=== PATIENT | female | born 1945 | race Caucasian/White ===

== ENCOUNTER 2023-06-28 13:38 | Emergency (ER) | payer MEDICARE, SELFPAY ==
[2023-06-28 14:09] VITALS: BP 149/80
--- NOTE | 2023-06-28 15:01 | ED.GENMED ---
History of Present Illness
General
Chief Complaint: Musculo-Skeletal Complaint
Source: patient
Exam Limitations: none
Time Seen by Provider: 06/28/23 14:54
Travel History
Have you had any contact with someone who has COVID-19?: No
Do you have any symptoms of coronavirus? Fever > 100 degrees, chills, cough, shortness of breath, sore throat, loss of taste or smell, muscle aches, or headache?: No
History of Present Illness
History of Present Illness:
See MDM
Past History
Past History
ED Past Medical History: Other (DVT)
ED Past Surgical History: Gynecological and Other
Social History
Tobacco: Former smoker
Alcohol: Occasional
Personal:
Living: alone
Phy Exam
Physical Exam
Physical Exam:
See MDM
Course
Orders/Labs/Results
Orders:
Orders
06/28/23 14:12
Knee, Left 4 or More Views [CR Knee - Left 4 Or More View*] Urgent
Comment:
Reason For Exam: pain after a fall
Vital Signs
Initial and Last Documented VS:
Initial Vital Signs
Temp Pulse Resp BP Pulse Ox
98.7 F 75 20 149/80 99
06/28/23 14:09 06/28/23 14:09 06/28/23 14:09 06/28/23 14:09 06/28/23 14:09
Last Documented Vital Signs
Temp Pulse Resp BP Pulse Ox
98.7 F 75 20 149/80 99
06/28/23 14:09 06/28/23 14:09 06/28/23 14:09 06/28/23 14:09 06/28/23 14:09
MDM/Problems Addressed
Differential Diagnosis Includes:
HPI and MDM Narrative:
78-year-old female presenting with left knee pain after trip and fall. Patient states her calf and her posterior thigh hurt with movement. She initially thought it was likely related to a muscle strain but states her neighbor convinced her to go
to the hospital for evaluation.
X-ray negative for fracture. Joint stable. We discussed likely calf and hamstring strain and follow-up with orthopedics if symptoms persist
Physical exam
General: Well appearing and non-toxic
HEENT: protecting airway
Neck: appears supple
CV: No evidence of cyanosis
Resp: No accessory muscle use
Abd: Non-distended
Extremities: No knee effusion. Joint stable. Mild tenderness to hamstring and calf without swelling or erythema. Distal extremity neurovascular intact
Neuro: alert
Psych: Normal affect
Skin: Intact
Problems Addressed including Acute and Chronic Conditions affecting care:
1. knee contusion
Acuity: acute
Prognosis: stable
Details: X-ray negative for fracture. Discussed likely muscle strain versus knee strain
Updates
Differential Diagnosis (but not limited to): Patellar fracture, knee effusion, muscle strain
Testing considered: DVT ultrasound but symptoms are too soon to develop clot
Drug therapy (if applicable): OTC meds, please see d/c instruction regarding Rx drugs
Amount and/or Complexity of Data Reviewed
Clinical info obtained from: Patient
External data reviewed: N/A
Labs I independently reviewed (but not limited to): N/A
Radiology: X-ray independently reviewed: Knee x-ray negative for fracture
Pulse Ox: not hypoxic
EKG independently reviewed: N/A
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
Critical Care: N/A
Risk of Complication:
Social Determinants of health: Good social support
Discussed with other providers: N/A
Escalation of Care includes Admit/Obs: After being observed in the Emergency Department, pt stable for discharge.
Occasional wrong word or 'sound a like' substitutions may have occurred due to the inherent limitations of voice recognition software. Read the chart carefully and recognize, using context, where substitutions have occurred.
*Critical Care Note
Total Time (30-74mins, 75-104mins- exclusive of procedures): Not Applicable
ED Attending Note
-
Portions of this chart may have been created with voice recognition software.� Occasional wrong word or��sound alike� substitutions may have occurred due to the inherent limitations of voice recognition software.
Discharge Plan
Departure
Patient Disposition: Home (Routine Discharge)
Date of Disposition: 06/28/23
Time of Disposition: 15:05
Patient with high blood pressure during this ER visit?: Yes
Discharge Problem:
Contusion of knee
Instructions: Knee Pain ED, BLOOD PRESSURE
Prescriptions:
No Action
levetiracetam 500 MG tablet
1,000 mg PO HS
levetiracetam [Keppra] 750 MG tablet
750 mg PO DAILY
Probiotic 1 EACH capsule
1 ea PO TID
Fiber Powder
1 scoop PO DAILY
ferrous sulfate 250 MG capsule, extended release
250 mg PO DAILY Qty: 60 0RF
Colace 50 mg Capsule
50 mg PO BID
multivitamin Tablet
1 tab PO DAILY
Calcium Bone Strength
2,715 mg PO DAILY
Referrals:
Jan White, DO [Active] -
Activity Restrictions/Additional Instructions:
Use a knee wrap and tylenol as needed for pain. Please call the orthopedist if symptoms persist.
Interventions
Interventions:
*Risk Screen - Suicide Last Done: 06/28/23 14:57
*General Assessment Last Done: 06/28/23 14:57
*Neglect/Abuse Screening Last Done: 06/28/23 14:57
ED- Fall Risk Assessment Last Done: 06/28/23 14:57
*ED COVID-19 Vaccine History Last Done: 06/28/23 14:57
ED-Musculoskeletal Assessment Last Done: 06/28/23 14:57
--- NOTE | 2023-06-28 15:30 | EDRN ---
Discharge instructions reviewed with patient. Verbalized understanding. Ambulated with steady gait to the lobby.
== END 2023-06-28 15:30 | disposition home or self-care (01) ==
LOC: EMR 13:38
PROVIDERS: EMERGENCY PHYSICIAN Student in an Organized Health Care Education/Training Program; FAMILY PHYSICIAN Internal Medicine
DX: S80.02XA Contusion of left knee, initial encounter (principal); W01.0XXA Fall on same level from slipping, tripping and stumbling without subsequent striking against object, initial encounter; R03.0 Elevated blood-pressure reading, without diagnosis of hypertension; Z86.718 Personal history of other venous thrombosis and embolism; Z87.891 Personal history of nicotine dependence; Z88.1 Allergy status to other antibiotic agents; Z91.040 Latex allergy status; Z91.011 Allergy to milk products; Z88.2 Allergy status to sulfonamides; Z91.018 Allergy to other foods
CPT/HCPCS: 99283; 73564

== ENCOUNTER 2024-12-30 11:15 | Outpatient (RCR) | payer MEDICARE, OTHER, SELFPAY | END 2024-12-30 23:59 | disposition home or self-care (01) | LOC: RPT 11:15 | PROVIDERS: ATTENDING PHYSICIAN Physician Assistant Surgical; FAMILY PHYSICIAN Internal Medicine | DX: S76.011D Strain of muscle, fascia and tendon of right hip, subsequent encounter (principal); Z73.6 Limitation of activities due to disability; M62.81 Muscle weakness (generalized); R26.89 Other abnormalities of gait and mobility; Z96.641 Presence of right artificial hip joint | CPT/HCPCS: 97110; 97112; 97162 ==

== ENCOUNTER 2025-01-28 10:05 | Outpatient (RCR) | payer MEDICARE, OTHER, SELFPAY | END 2025-01-28 23:59 | disposition home or self-care (01) | LOC: RPT 10:05 | PROVIDERS: ATTENDING PHYSICIAN Physician Assistant Surgical; FAMILY PHYSICIAN Internal Medicine | DX: S76.011D Strain of muscle, fascia and tendon of right hip, subsequent encounter (principal); Z73.6 Limitation of activities due to disability; M62.81 Muscle weakness (generalized); R26.89 Other abnormalities of gait and mobility; Z96.641 Presence of right artificial hip joint | CPT/HCPCS: 97110; 97112 ==